=== PATIENT | male | born 1945 | race Caucasian/White ===

== ENCOUNTER → 2016-12-03 | Outpatient (CLI) | payer OTHER | LOC: RAD 14:20 | PROVIDERS: ATTEND Family Medicine | DX: M25.512 Pain in left shoulder (principal); S46.012A Strain of muscle(s) and tendon(s) of the rotator cuff of left shoulder, initial encounter; X58.XXXA Exposure to other specified factors, initial encounter ==

== ENCOUNTER 2019-06-18 14:09 | Emergency (ER) | payer OTHER ==
[2019-06-18 14:23] VITALS: BP 103/50
--- NOTE | 2019-06-18 14:41 | ER Document Report ---
Addendum entered and electronically signed by MAYANK SANTOS PA-C 06/18/19 15:43: Discharge - Discharge Clinical Impression: Closed fracture of left distal fibula Qualifiers: Encounter type: initial encounter Fracture morphology: unspecified fracture morphology Qualified Code(s): S82.832A - Other fracture of upper and lower end of left fibula, initial encounter for closed fracture Fracture of fifth metatarsal bone of left foot Qualifiers: Encounter type: initial encounter Fracture type: closed Fracture alignment: nondisplaced Qualified Code(s): S92.355A - Nondisplaced fracture of fifth metatarsal bone, left foot, initial encounter for closed fracture Condition: Stable Disposition: HOME, SELF-CARE Instructions: Splint Precautions ([facility]) Additional Instructions: Rest, Ice, Compression, Elevation Use crutches/splint as directed Tylenol/ibuprofen as needed F/u with your PCP in 3-5 days for a recheck Call orthopedics today/tomorrow to schedule an appointment for further evaluation and management Return to the ED with any worsening symptoms and/or development of fever, headache, chest pain, palpitations, syncope, shortness of breath, trouble breathing, abdominal pain, n/v/d, muscle weakness/paralysis, numbness/tingling, swelling, redness, or other worsening symptoms that are concerning to you. Prescriptions: Wheelchair 1 each MC ONCE PRN #1 each PRN Reason: Referrals: [facility] [Provider Group] - 06/21/19 EDITH CARO MD [NO LOCAL MD] - Follow up as needed Addendum entered and electronically signed by MAYANK SANTOS PA-C 06/18/19 15:37: Procedures - Immobilization Left Leg Pre-Proc Neuro Vasc Exam: Normal Immobilizer type: Short Leg Posterior Performed by: PCT Post-Proc Neuro Vasc Exam: Normal, Unchanged from pre-exam Original Note: HPI - HPI Time Seen by Provider: 06/18/19 14:26 Pain Level: 4 Notes: Patient is a 74-year-old male with history of coronary artery disease and on aspirin, hypertension, insulin-dependent diabetes who presents complaining of left ankle, left foot, left knee, and right forearm pain status post injury yesterday. Patient states that he slipped on 2 steps twisting his ankle and injuring those parts of his body. He did not hit his head or lose conscious. Patient states that he noticed some initial swelling that improved, but woke up with more swelling today by merrily to his foot and ankle. Patient states that it does cause him pain to weight-bear, but he has been able to limp. Denies drug allergies. He has no other concerns or complaints. Denies any headache, fever, head injury, neck pain, changes in vision/speech/mentation/hearing, URI, sore throat, chest pain, palpitations, syncope, cough, shortness of breath, wheeze, dyspnea, abdominal pain, nausea/vomiting/diarrhea, urinary retention, dysuria, hematuria, loss of control of bowel or bladder, numbness/tingling, saddle anesthesia, muscle paralysis/weakness, or rash. - ROS Systems Reviewed and Negative: Yes All other systems reviewed and negative - CONSTITUTIONAL Constitutional: DENIES: Fever, Chills - EENT EENT: DENIES: Sore Throat, Ear Pain, Eye problems - NEURO Neurology: DENIES: Headache, Weakness, Vision blurred, Dizzinesss / Vertigo - CARDIOVASCULAR Cardiovascular: DENIES: Chest pain - RESPIRATORY Respiratory: DENIES: Trouble Breathing, Coughing - GASTROINTESTINAL Gastrointestinal: DENIES: Abdominal Pain, Black / Bloody Stools - URINARY Urinary: DENIES: Dysuria, Urgency, Frequency - MUSCULOSKELETAL Musculoskeletal: REPORTS: Extremity pain - R knee/ankle Past Medical History - Social History Smoking Status: Former Smoker Chew tobacco use (# tins/day): No Frequency of alcohol use: None Drug Abuse: None Family History: Reviewed & Not Pertinent Patient has suicidal ideation: No Patient has homicidal ideation: No - Past Medical History Cardiac Medical History: Reports: Hx Coronary Artery Disease, Hx Heart Attack, Hx Hypertension Endocrine Medical History: Reports: Hx Diabetes Mellitus Type 1, Hx Diabetes Mellitus Type 2 Renal/ Medical History: Denies: Hx Peritoneal Dialysis Past Surgical History: Reports: Hx Coronary Stent, Hx Orthopedic Surgery - L TKR - Immunizations Hx Diphtheria, Pertussis, Tetanus Vaccination: Yes Vertical Provider Document - CONSTITUTIONAL Agree With Documented VS: Yes Notes: PHYSICAL EXAMINATION: accompanied by female nurse GENERAL: Well-appearing, well-nourished and in no acute distress. A&Ox4. An swers questions appropriately. HEAD: Atraumatic, normocephalic. Non-tender. No martins sign EYES: Pupils equal round and reactive to light, extraocular movements intact, sclera anicteric, conjunctiva are normal. No raccoon eyes/entrapment ENT: EAC clear b/l. TM's intact b/l without erythema, fluid, or perforation. Nares patent and without discharge. oropharynx clear without exudates. No t onsilar hypertrophy or erythema. Moist mucous membranes. No sinus tenderness. No hemotympanum/CSF discharge. NECK: Normal range of motion, supple without lymphadenopathy. No rigidity. No midline tenderness. Chest: No flail chest. equal rise/fall. Non-tender LUNGS: Breath sounds clear to auscultation bilaterally and equal. No wheezes rales or rhonchi. HEART: Regular rate and rhythm without murmurs, rubs, gallops. ABDOMEN: Soft, nontender, nondistended abdomen. No guarding, no rebound. Normal bowel sounds present. No CVA tenderness bilaterally. No ecchymosis. Musculoskeletal: Rt UE: FROM to passive/active. There is mild swelling and ecchymosis to mid anterolateral forearm with + tenderness. N/V intact distal. No tenderness at the joints to the RUE. Lt knee: FROM. + mild medial anterior knee tenderness to palp. surgical scar noted. No obvious ecchymosis/effusion/erythema/warmth. Lt ankle: + swelling laterally with tenderness to the lateral malleolus. LROM to dorsiflexion. Strength 5+/5. Achilles intact. Lower leg compartments soft. Lt foot: + swelling with tenderness dorsal/lateral food. FROM. Back: FROM to passive/active. Strength 5+/5. No vertebral point tenderness, stepoffs, or deformities. No other bony tenderness or ecchymosis. Extremities: No cyanosis, clubbing, or edema b/l. Peripheral pulses 2+. Capillary refill less than 2 seconds. NEUROLOGICAL: NIH 0. GCS 15. Cranial nerves grossly intact. Normal speech. Normal sensory, motor exams. Reflexes 2+ b/l. PARUL's negative. Pronator drift negative. Heel/ji, finger/nose wnl. PSYCH: Normal mood, normal affect. SKIN: see above. - INFECTION CONTROL TRAVEL OUTSIDE OF THE [place] IN LAST 30 DAYS: No Course - Re-evaluation Re-evalutation: 06/18/19 15:24 Patient is an afebrile, well-hydrated, 74-year-old male who presents to the ED with a fracture to the distal left fibula and comminuted fifth metatarsal base fracture of the foot. Vitals are acceptable without any significant tachycardia, tachypnea, or hypoxia. PE is otherwise unremarkable for any neurovascular compromise, obvious tendon/ligament rupture, open fracture, septic joint. See XR results. Splint applied today and crutches provided. Patient declined any Tylenol or Motrin at this time. Patient is nontoxic-appearing. No other labs or imaging warranted at this time based on H&P. Conservative measures otherwise for symptoms. Recheck with your PCM in 3-5 days. Call orthopedics today/tomorrow to schedule an appointment for further evaluation and management. Return to the ED with any worsening/concerning symptoms otherwise as reviewed in discharge. Patient is in agreement. Dr. Hamilton in agreement with dispo to home with non-weightbearing. - Vital Signs Vital signs: Temp Pulse Resp BP Pulse Ox 98.3 F 70 103/50 L 95 06/18/19 14:22 06/18/19 14:22 06/18/19 14:22 06/18/19 14:22 Discharge - Discharge Clinical Impression: Closed fracture of left distal fibula Qualifiers: Encounter type: initial encounter Fracture morphology: unspecified fracture morphology Qualified Code(s): S82.832A - Other fracture of upper and lower end of left fibula, initial encounter for closed fracture Fracture of fifth metatarsal bone of left foot Qualifiers: Encounter type: initial encounter Fracture type: closed Fracture alignment: nondisplaced Qualified Code(s): S92.355A - Nondisplaced fracture of fifth metatarsal bone, left foot, initial encounter for closed fracture Condition: Stable Disposition: HOME, SELF-CARE Instructions: Splint Precautions ([facility]) Additional Instructions: Rest, Ice, Compression, Elevation Use crutches/splint as directed Tylenol/ibuprofen as needed F/u with your PCP in 3-5 days for a recheck Call orthopedics today/tomorrow to schedule an appointment for further evaluation and management Return to the ED with any worsening symptoms and/or development of fever, headache, chest pain, palpitations, syncope, shortness of breath, trouble breathing, abdominal pain, n/v/d, muscle weakness/paralysis, numbness/tingling, swelling, redness, or other worsening symptoms that are concerning to you. Referrals: EDITH CARO MD [NO LOCAL MD] - Follow up as needed [facility] [Provider Group] - 06/21/19
--- NOTE | 2019-06-18 15:16 | RADIOLOGY REPORT (SQ) ---
EXAM DESCRIPTION: FOREARM RIGHT COMPLETED DATE/TIME: 06/18/2019 3:07 pm REASON FOR STUDY: pain s/p fall COMPARISON: None. NUMBER OF VIEWS: Two views. TECHNIQUE: Two radiographic images acquired of the right forearm, including elbow and wrist in at le ast one projection. LIMITATIONS: None. FINDINGS: MINERALIZATION: Normal. BONES: No acute fracture. No worrisome bone lesions. SOFT TISSUES: No obvious swelling or foreign body. OTHER: There are degenerative changes in the elbow. IMPRESSION: No acute findings. TECHNICAL DOCUMENTATION: JOB ID: [id number] [employer]- All Rights Reserved Reading location - IP/workstation name: COURT RECORDING [email or web address]
--- NOTE | 2019-06-18 15:16 | RADIOLOGY REPORT (SQ) ---
EXAM DESCRIPTION: FOOT LEFT COMPLETE COMPLETED DATE/TIME: 06/18/2019 3:07 pm REASON FOR STUDY: swelling pain s/p injury COMPARISON: None. NUMBER OF VIEWS: Three views. TECHNIQUE: AP, lateral and oblique radiographic images acquired of the left foot. LIMITATIONS: None. FINDINGS: MINERALIZATION: Normal. BONES: There is a comminuted fracture involving the base of the 5th metatarsal. JOINTS: No effusions. SOFT TISSUES: There is soft tissue edema. OTHER: No other significant finding. IMPRESSION: Comminuted fracture at the base of the 5th metatarsal. Associated soft tissue swelling. TECHNICAL DOCUMENTATION: JOB ID: [id number] [employer]- All Rights Reserved Reading location - IP/workstation name: [email or web address]
--- NOTE | 2019-06-18 15:17 | RADIOLOGY REPORT (SQ) ---
EXAM DESCRIPTION: ANKLE LEFT COMPLETE COMPLETED DATE/TIME: 06/18/2019 3:07 pm REASON FOR STUDY: swelling pain s/p injury COMPARISON: None. NUMBER OF VIEWS: Three views. TECHNIQUE: AP, lateral, and oblique radiographic images acquired of the left ankle. LIMITATIONS: None. FINDINGS: MINERALIZATION: Normal. BONES: There is an avulsion fracture of the lateral malleolus. Comminuted fracture at the base of th e 5th metatarsal is again noted as well. JOINTS: No effusions. SOFT TISSUES: There is soft tissue swelling laterally. OTHER: No other significant finding. IMPRESSION: 1. Avulsion fracture of the lateral malleolus. 2. Comminuted fracture of the base of the 5th metatarsal. 3. Associated soft tissue swelling. TECHNICAL DOCUMENTATION: JOB ID: [id number] [employer]- All Rights Reserved Reading location - IP/workstation name: [email or web address]
--- NOTE | 2019-06-18 15:18 | RADIOLOGY REPORT (SQ) ---
EXAM DESCRIPTION: KNEE LEFT 4 VIEW COMPLETED DATE/TIME: 06/18/2019 3:07 pm REASON FOR STUDY: pain s/p fall COMPARISON: None. NUMBER OF VIEWS: Four views. TECHNIQUE: AP, lateral, and both oblique radiographic images acquired of the left knee. LIMITATIONS: None. FINDINGS: MINERALIZATION: Normal. BONES: No acute fracture or dislocation. No worrisome bone lesions. JOINT: Prior total left knee replacement. SOFT TISSUES: No soft tissue swelling. No radio-opaque foreign body. OTHER: No other significant finding. IMPRESSION: Postsurgical changes with a total knee replacement. No acute fracture or dislocation. TECHNICAL DOCUMENTATION: JOB ID: [id number] [employer]- All Rights Reserved Reading location - IP/workstation name: [email or web address]
== END 2019-06-18 15:51 | disposition home or self-care (01) ==
LOC: ER 14:09
DX: S82.62XA Displaced fracture of lateral malleolus of left fibula, initial encounter for closed fracture (principal); S92.355A Nondisplaced fracture of fifth metatarsal bone, left foot, initial encounter for closed fracture; S50.11XA Contusion of right forearm, initial encounter; M25.572 Pain in left ankle and joints of left foot; M79.631 Pain in right forearm; M79.672 Pain in left foot; M25.562 Pain in left knee; M25.561 Pain in right knee; W10.9XXA Fall (on) (from) unspecified stairs and steps, initial encounter; I10 Essential (primary) hypertension; I25.10 Atherosclerotic heart disease of native coronary artery without angina pectoris; Z79.82 Long term (current) use of aspirin; E11.9 Type 2 diabetes mellitus without complications; Z79.4 Long term (current) use of insulin; Z87.891 Personal history of nicotine dependence; Z96.652 Presence of left artificial knee joint; Z95.5 Presence of coronary angioplasty implant and graft
CPT/HCPCS: 94640; 99283

== ENCOUNTER 2020-05-19 11:07 | Emergency (ER) | payer OTHER ==
[2020-05-19] MEDS ORDERED: FAMOTIDINE INJ/PF 20 MG/2 ML SDV IV ONE ×2 (11:12→11:13)
[2020-05-19] MEDS ORDERED: DIPHENHYDRAMINE HCL 50 MG/ML VIAL ONE (11:12)
[2020-05-19] MEDS ORDERED: METHYLPREDNISOLONE INJ 125 MG/2 ML SDV ONE (11:12)
[2020-05-19] MEDS ORDERED: METHYLPREDNISOLONE INJ 125 MG/2 ML SDV IV ONE (11:13)
[2020-05-19] MEDS ORDERED: DIPHENHYDRAMINE HCL 50 MG/ML VIAL IV ONE (11:13)
--- NOTE | 2020-05-19 11:19 | ER Document Report ---
ED General - General Chief Complaint: Swelling of Tongue Stated Complaint: TONGUE SWELLING Time Seen by Provider: 05/19/20 11:13 Primary Care Provider: [facility] [Primary Care Provider] - Follow up as needed Notes: HPI: Patient is a very polite 75-year-old male who presents with some tongue swelling. He states that this started last evening into today. Patient states this actually has happened once a month for 6 months. He has been unable to get into the [place] hospital secondary to the COVID virus. Patient did go to see the clinic provider here who sent the patient here for further evaluation of angioedema. Patient does take lisinopril. Patient takes other medications but denies any new medications for the last 6 to 8 months. Patient denies any fevers, cough, difficulty breathing or swallowing. Patient actually states That the swellingAt this time is improved. ROS: See HPI All other review of systems reviewed and otherwise negative Reviewed vital signs and nursing note as charted by RN. PHYSICAL EXAM: CONSTITUTIONAL: Alert and oriented and responds appropriately to questions. Well-appearing; well-nourished HEAD: Normocephalic; atraumatic EYES: PERRL; Conjunctivae clear, sclerae non-icteric ENT: Minimal swelling of the tongue to the left lateral side. No obvious lip or facial swelling. No posterior pharyngeal or uvular swelling. No stridor appreciated NECK: Supple without meningismus; non-tender; no cervical lymphadenopathy, no masses CARD: Regular rate and rhythm; no murmurs; symmetric distal pulses RESP: Normal chest excursion without splinting or tachypnea; breath sounds clear and equal bilaterally; no wheezing or stridor appreciated ABD/GI: Normal bowel sounds; non-distended; soft, non-tender BACK: The back appears normal and is non-tender to palpation EXT: Normal ROM in all joints; non-tender to palpation; no edema SKIN: No acute lesions noted NEURO: CN 2-12 intact; 5/5 bilateral upper and lower extremity strength with sensation intact to light touch PSYCH: The patient's mood and manner are appropriate. Grooming and personal hygiene are appropriate. TRAVEL OUTSIDE OF THE [place] IN LAST 30 DAYS: No - Related Data Allergies/Adverse Reactions: lisinopril Allergy (Severe, Verified 05/19/20 11:35) Angioneurotic Edema Past Medical History - Social History Smoking Status: Unknown if Ever Smoked Family History: Reviewed & Not Pertinent - Past Medical History Cardiac Medical History: Reports: Hx Coronary Artery Disease, Hx Heart Attack, Hx Hypertension Endocrine Medical History: Reports: Hx Diabetes Mellitus Type 1, Hx Diabetes Mellitus Type 2 Renal/ Medical History: Denies: Hx Peritoneal Dialysis Past Surgical History: Reports: Hx Coronary Stent, Hx Orthopedic Surgery - L TKR - Immunizations Hx Diphtheria, Pertussis, Tetanus Vaccination: Yes Physical Exam - Vital signs Vitals: Resp BP Pulse Ox 20 151/74 H 99 05/19/20 11:16 05/19/20 11:16 05/19/20 11:16 Course - Re-evaluation Re-evalutation: 05/19/20 11:18 Given the history and physical examination, we will place the patient on the monitor and provide Benadryl, steroids, and Pepcid. I do not believe epinephrine is beneficial in this case. We will continue to watch the patient and I have instructed the patient regarding discontinuation of the lisinopril which he understands. 05/19/20 12:42 Patient's tongue swelling has improved. 05/19/20 13:47 Patient has been here for 3 hours. Patient swelling continues to improve. Patient understands the importance of discontinuing lisinopril and following up with the primary care physician. Blood pressure was 125/75 here in the emergency department. Patient is very comfortable with this plan. He has good primary care follow-up. - Vital Signs Vital signs: Temp Pulse Resp BP Pulse Ox 98.4 F 64 19 126/65 H 95 05/19/20 11:27 05/19/20 11:27 05/19/20 13:16 05/19/20 13:16 05/19/20 13:16 Discharge - Discharge Clinical Impression: Angioedema Qualifiers: Encounter type: initial encounter Qualified Code(s): T78.3XXA - Angioneurotic edema, initial encounter Condition: Good Disposition: HOME, SELF-CARE Additional Instructions: Come back immediately with any return of tongue swelling, lip swelling, difficulty breathing or swallowing, shortness of breath, or any other acute problems. Please discontinue your lisinopril medication and follow-up with your primary care physician for further assessment and possible alternative medications. Referrals: [facility] [Primary Care Provider] - Follow up as needed
[2020-05-19 14:01] VITALS: BP 129/68
--- NOTE | 2020-05-20 09:17 | EKG REPORT ---
SEVERITY:- BORDERLINE ECG - SINUS RHYTHM BORDERLINE INFERIOR Q WAVES : Confirmed by: Priti Waters 20-May-2020 09:16:24
== END 2020-05-19 14:03 | disposition home or self-care (01) ==
LOC: ER 11:07
DX: T78.3XXA Angioneurotic edema, initial encounter (principal); X58.XXXA Exposure to other specified factors, initial encounter; I25.10 Atherosclerotic heart disease of native coronary artery without angina pectoris; I10 Essential (primary) hypertension; E11.9 Type 2 diabetes mellitus without complications; Z79.899 Other long term (current) drug therapy
CPT/HCPCS: 93005; 99283; 96374; 96375; 93010; J1200; J2930; S0028